=== PATIENT | male | born 1965 | race Caucasian/White ===

== ENCOUNTER 2018-06-27 20:43 | Inpatient (IN) | payer MEDICAID ==
[~2018-06-27 20:43] MED LIST: ETOMIDATE 20 MG INJ; SUCCINYLCHOLINE CHLORIDE 100 MG/5 ML SYG IV
[2018-06-27] MEDS: VANCOMYCIN 1 GM (PMX) 250 ML IVPB (21:00)
[2018-06-27 21:22] LABS: ADD MAN DIFF? NO
[2018-06-27 21:27] LABS: ABNORMAL IP MESSAGE 1; BASOPHILS % 0.1 % (0.0-2.0); HEMATOCRIT 26.7 % (42.0-52.0); HEMOGLOBIN 8.9 g/dl (14.0-18.0); LYMPHOCYTES # 0.6 10^3/ul (0.8-2.9); LYMPHOCYTES % 8.1 % (15.0-51.0); MEAN CORPUSCULAR HEMOGLOBIN 33.6 pg (29.0-33.0); MEAN CORPUSCULAR HGB CONC 33.3 g/dl (32.0-37.0); MEAN CORPUSCULAR VOLUME 100.8 fl (82.0-101.0); MEAN PLATELET VOLUME 11.9 fl (7.4-10.4); MONOCYTE # 0.3 10^3/ul (0.3-0.9); MONOCYTES % 4.9 % (0.0-11.0); NUCLEATED RED BLOOD CELLS% 0.3 /100WBC (0.0-0.0); PLATELET COUNT 55 10^3/UL (140-415); POSITIVE DIFF @See below; RED BLOOD COUNT 2.65 10^6/ul (4.70-6.10); RED CELL DISTRIBUTION WIDTH 22.6 % (11.5-14.5)
[2018-06-27] MEDS: ACETAMINOPHEN 650 MG SUPP PR (21:43)
[2018-06-27] MEDS: SODIUM CHLORIDE 0.9% 1L BAG IV* (21:43)
[2018-06-27 21:50] LABS: INR 3.85; PARTIAL THROMBOPLASTIN TIME 41.2 Sec (23.0-35.0); PROTIME 37.8 Sec (11.9-14.9)
[2018-06-27 22:05] LABS: ALANINE AMINOTRANSFERASE 320 IU/L (13-69); ALBUMIN 3.2 g/dl (3.3-4.9); ALBUMIN/GLOBULIN RATIO 0.61; ALKALINE PHOSPHATASE 155 IU/L (42-121); ANION GAP 15 (5-13); BILIRUBIN,INDIRECT 3.1 mg/dl (0-1.1); BILIRUBIN,TOTAL 5.1 mg/dl (0.2-1.3); BLOOD UREA NITROGEN 33 mg/dl (7-20); CALCIUM 8.5 mg/dl (8.4-10.2); CARBON DIOXIDE 24 mmol/L (21-31); CHLORIDE 104 mmol/L (97-110); CREATININE 1.27 mg/dl (0.61-1.24); Estimated GFR > 60 mL/min (>60); GLUCOSE 90 mg/dl (70-220); POTASSIUM 4.9 mmol/L (3.5-5.1); SODIUM 143 mmol/L (135-144); TOTAL PROTEIN 8.4 g/dl (6.1-8.1)
[2018-06-27 22:07] LABS: ETHANOL < 10.0 mg/dl (0-0)
[2018-06-27] MEDS: ACYCLOVIR 1,000 MG in DEXTROSE 5% 100 ML IVPB (22:30)
[2018-06-27 22:35] LABS: AMMONIA 123 umol/l (9-30)
[2018-06-27 22:50] LABS: ASPARTATE AMINO TRANSFERASE 1974 IU/L (15-46)
[2018-06-27] MEDS: SUCCINYLCHOLINE CHLORIDE 100 MG/5 ML SYG IV (22:57)
[2018-06-27] MEDS: ETOMIDATE 20 MG INJ IV (22:57)
[2018-06-27] MEDS ORDERED: PROPOFOL 100 ML (23:00)
[2018-06-27] MEDS ORDERED: NORepinephrine 8MG/250 ML (PMX 250 ML IV (23:00)
[2018-06-27] MEDS ORDERED: ALBUTEROL HFA 8 GM INHALER INH (23:00)
[2018-06-27] MEDS ORDERED: ACETAMINOPHEN 650 MG SUPP PR (23:00)
[2018-06-27] MEDS: ENOXAPARIN 100 MG/ML SYG SC (23:00)
[2018-06-27] MEDS: MIDAZOLAM 1 MG/ML 2 ML INJ IV (23:00)
[2018-06-27] MEDS ORDERED: PROPOFOL 0 ML (23:00)
[2018-06-27] MEDS ORDERED: ONDANSETRON 4 MG INJ IV (23:00)
[2018-06-27] MEDS ORDERED: IPRATROPIUM (HFA) 12.9 GM INHALER INH (23:00)
[2018-06-27] MEDS: PROPOFOL 100 ML IV (23:05)
[2018-06-27] MEDS ORDERED: FENTAnyl 50 MCG/ML VIAL (23:18)
[2018-06-27] MEDS: FENTAnyl 50 MCG/ML VIAL IV (23:39)
[2018-06-28] MEDS: METOPROLOL 5 MG INJ IV
[2018-06-28 00:08] LABS: Allen Test ACCEPTAB; Blood Gas Amplitude 30; MODE VENT - AC
[2018-06-28] MEDS: CEFEPIME 2GM/50 ML (PMX) 50 ML IVPB (00:11)
[2018-06-28] MEDS: LEVETIRACETAM 1000 MG (PMX) 100 ML IVPB ×2 (00:13→10:37)
[2018-06-28] MEDS: SOD CHLORIDE 0.9% 1,000 ML IV (00:30)
[2018-06-28 00:53] LABS: AMPHETAMINE/METHAMPHETAMINE Negative (NEGATIVE); BARBITURATES Negative (NEGATIVE); BENZODIAZEPINES Negative (NEGATIVE); CANNABINOIDS Negative (NEGATIVE); COCAINE Negative (NEGATIVE); OPIATES Negative (NEGATIVE)
[2018-06-28 01:20] LABS: ADD UMIC YES; UR ASCORBIC ACID NEGATIVE (NEGATIVE); UR BACTERIA FEW /HPF (NONE SEEN); UR BILIRUBIN (Dip) 1+ mg/dL (NEGATIVE); UR BLOOD (Dip) 3+ mg/dL (NEGATIVE); UR CLARITY SLIGHTLY CLOUDY (CLEAR); UR COLOR AMBER (YELLOW); UR GLUCOSE (Dip) NEGATIVE (NEGATIVE); UR KETONES (Dip) 1+ mg/dL (NEGATIVE); UR LEUKOCYTE ESTERASE (Dip) TRACE Leu/ul (NEGATIVE); UR MUCUS FEW /HPF (NONE SEEN); UR NITRITE (Dip) NEGATIVE (NEGATIVE); UR NONSQUAMOUS EPITHELIAL CELL 2 /HPF (NONE SEEN); UR RBC 143 /HPF (0-5); UR SPECIFIC GRAVITY (Dip) 1.025 (1.003-1.030); UR SQUAMOUS EPITHELIAL CELL FEW /HPF (FEW); UR TOTAL PROTEIN (Dip) 2+ mg/dl (NEGATIVE); UR UROBILINOGEN (Dip) 2+ mg/dL (NEGATIVE); UR WBC 36 /HPF (0-5)
[2018-06-28] MEDS: FENTAnyl (DRIP) 1000 mcg/100mL 100 ML IV ×3 (01:30→23:33)
[2018-06-28] MEDS: AMIODARONE 150MG/D5W BOLUS 100 ML IV (02:09)
[2018-06-28] MEDS: AMIODARONE 900 MG in DEXTROSE 5% 482 ML IV (02:30)
[2018-06-28] MEDS: DILTIAZEM 25 MG INJ IV ×2 (02:39→03:00)
[2018-06-28] MEDS: DEXTROSE 5%-0.45% NACL 1,000 ML IV ×4 (02:44→22:39)
[2018-06-28] MEDS: MIDAZOLAM (DRIP) 50 mg/50 mL 50 ML IV ×3 (02:50→23:34)
[2018-06-28 03:19] LABS: ADD MAN DIFF? NO
[2018-06-28 03:21] LABS: WHITE BLOOD COUNT 7.4 10^3/ul (4.8-10.8)
[2018-06-28 03:21] LABS: ABNORMAL IP MESSAGE 1; BASOPHILS % 0.1 % (0.0-2.0); HEMATOCRIT 27.4 % (42.0-52.0); HEMOGLOBIN 9.1 g/dl (14.0-18.0); LYMPHOCYTES # 0.5 10^3/ul (0.8-2.9); LYMPHOCYTES % 6.9 % (15.0-51.0); MEAN CORPUSCULAR HEMOGLOBIN 33.6 pg (29.0-33.0); MEAN CORPUSCULAR HGB CONC 33.2 g/dl (32.0-37.0); MEAN CORPUSCULAR VOLUME 101.1 fl (82.0-101.0); MEAN PLATELET VOLUME 11.7 fl (7.4-10.4); MONOCYTE # 0.5 10^3/ul (0.3-0.9); MONOCYTES % 6.5 % (0.0-11.0); NEUTROPHIL # 6.3 10^3/ul (1.6-7.5); NEUTROPHILS % 85.1 % (39.0-77.0); NUCLEATED RED BLOOD CELLS% 0.4 /100WBC (0.0-0.0); PLATELET COUNT 49 10^3/UL (140-415); POSITIVE DIFF @See below; RED BLOOD COUNT 2.71 10^6/ul (4.70-6.10); RED CELL DISTRIBUTION WIDTH 22.8 % (11.5-14.5)
[2018-06-28 03:24] LABS: AADO2 Arterial 24.9 mmHg (7.0-24.0); Allen Test ACCEPTAB; Arterial Base Excess -1.1 mmol/L (-3.0-3); Arterial Blood Gas Oxygen Sat 99.5 mmHG (95.0-98.0); Arterial COHb 0.3 % (0.0-3.0); Arterial Fraction of Oxyhgb 98.9 % (93.0-99.0); Arterial HCO3 21.8 mmol/L (22.0-26.0); Arterial MetHb 0.3 % (0.0-1.5); Arterial pCO2 30.3 mmhg (35-45); MODE VENT - AC; Site Right Radial
[2018-06-28 03:41] LABS: ALANINE AMINOTRANSFERASE 318 IU/L (13-69); ALBUMIN/GLOBULIN RATIO 0.57; ALKALINE PHOSPHATASE 158 IU/L (42-121); ANION GAP 14 (5-13); BILIRUBIN,INDIRECT 2.8 mg/dl (0-1.1); BILIRUBIN,TOTAL 5.1 mg/dl (0.2-1.3); BLOOD UREA NITROGEN 35 mg/dl (7-20); CARBON DIOXIDE 22 mmol/L (21-31); CHLORIDE 108 mmol/L (97-110); CREATININE 1.42 mg/dl (0.61-1.24); Estimated GFR 53 mL/min (>60); GLUCOSE 138 mg/dl (70-220); MAGNESIUM 1.7 mg/dl (1.7-2.5); PHOSPHORUS 2.3 mg/dl (2.5-4.9); POTASSIUM 4.6 mmol/L (3.5-5.1); SODIUM 144 mmol/L (135-144); TOTAL PROTEIN 8.2 g/dl (6.1-8.1)
[2018-06-28 03:58] LABS: CREATINE KINASE 2105 IU/L (23-200)
[2018-06-28 03:59] LABS: CK INDEX 0.8
[2018-06-28 04:00] LABS: LACTIC ACID 5.2 mmol/L (0.5-2.0)
[2018-06-28 04:18] LABS: ASPARTATE AMINO TRANSFERASE 1905 IU/L (15-46)
[2018-06-28] MEDS: LIDOCAINE 1% (MPF) 5 ML VIAL SC (05:00)
[2018-06-28] MEDS ORDERED: LACTULOSE 30ML CUP PO (08:30)
[2018-06-28 08:49] LABS: AADO2 Arterial 149.1 mmHg (7.0-24.0); Arterial Base Excess 1.4 mmol/L (-3.0-3); Arterial COHb 0.7 % (0.0-3.0); Arterial Fraction of Oxyhgb 89.2 % (93.0-99.0); Arterial HCO3 25.1 mmol/L (22.0-26.0); Arterial MetHb 0.2 % (0.0-1.5); Arterial pCO2 36.1 mmhg (35-45); Site Right Radial
[2018-06-28] MEDS ORDERED: FAMOTIDINE 20 MG INJ IV (09:00)
[2018-06-28] MEDS: CEFEPIME 1GM/50 ML (PMX) 50 ML IVPB ×2 (09:16→20:41)
[2018-06-28] MEDS: PANTOPRAZOLE 40 MG INJ IV ×2 (09:29→18:27)
[2018-06-28 09:37] LABS: CREATINE KINASE 1170 IU/L (23-200)
[2018-06-28 09:51] LABS: CK INDEX 0.9
[2018-06-28 11:28] LABS: PLATELET COUNT 33 10^3/UL (140-415)
[2018-06-28 11:53] LABS: LACTIC ACID 3.1 mmol/L (0.5-2.0)
[2018-06-28 11:58] LABS: INR 4.83; PROTIME 45.1 Sec (11.9-14.9); PT RATIO 3.5
[2018-06-28 11:59] LABS: PARTIAL THROMBOPLASTIN TIME 40.2 Sec (23.0-35.0)
[2018-06-28 12:01] LABS: THROMBIN TIME 26.7 SEC (13.8-19.1)
[2018-06-28 12:29] LABS: FIBRIN SPLIT PRODUCT >10 and <40 ug/ml (<10)
[2018-06-28] MEDS: LACTULOSE 30ML CUP PO ×3 (12:52→20:41)
[2018-06-28] MEDS: PHYTONADIONE (1 MG/ML PO SYG) PO (12:52)
[2018-06-28 12:58] LABS: D-DIMER > 10000.00 ng/ml (<460)
[2018-06-28] MEDS ORDERED: VANCOMYCIN IV PER PHARMACY XX (16:00)
[2018-06-28] MEDS: VANCOMYCIN HCL 2 GM in SOD CHLORIDE 0.9% 500 ML IVPB (18:27)
[2018-06-28 18:55] LABS: LACTIC ACID 2.2 mmol/L (0.5-2.0)
[2018-06-29 00:59] LABS: LACTIC ACID 1.9 mmol/L (0.5-2.0)
[2018-06-29 05:53] LABS: ABNORMAL IP MESSAGE 1; HEMATOCRIT 23.7 % (42.0-52.0); HEMOGLOBIN 7.8 g/dl (14.0-18.0); MEAN CORPUSCULAR HEMOGLOBIN 33.8 pg (29.0-33.0); MEAN CORPUSCULAR HGB CONC 32.9 g/dl (32.0-37.0); MEAN CORPUSCULAR VOLUME 102.6 fl (82.0-101.0); MEAN PLATELET VOLUME 10.9 fl (7.4-10.4); NUCLEATED RED BLOOD CELLS% 0.3 /100WBC (0.0-0.0); PLATELET COUNT 32 10^3/UL (140-415); POSITIVE DIFF @See below; RED BLOOD COUNT 2.31 10^6/ul (4.70-6.10); RED CELL DISTRIBUTION WIDTH 22.9 % (11.5-14.5)
[2018-06-29] MEDS: PANTOPRAZOLE 40 MG INJ IV ×2 (05:53→17:40)
[2018-06-29] MEDS: VANCOMYCIN 1 GM 250 ML IVPB ×2 (05:53→17:40)
[2018-06-29 05:56] LABS: ALANINE AMINOTRANSFERASE 243 IU/L (13-69); ALBUMIN 2.4 g/dl (3.3-4.9); ALKALINE PHOSPHATASE 130 IU/L (42-121); BILIRUBIN,INDIRECT 3.1 mg/dl (0-1.1); BILIRUBIN,TOTAL 4.6 mg/dl (0.2-1.3)
[2018-06-29 05:57] LABS: IRON 45 ug/dl (35-150)
[2018-06-29 05:58] LABS: MAGNESIUM 1.9 mg/dl (1.7-2.5)
[2018-06-29 05:58] LABS: PHOSPHORUS 1.5 mg/dl (2.5-4.9)
[2018-06-29 05:59] LABS: ANION GAP 8 (5-13); BLOOD UREA NITROGEN 40 mg/dl (7-20); CALCIUM 7.7 mg/dl (8.4-10.2); CARBON DIOXIDE 25 mmol/L (21-31); CHLORIDE 109 mmol/L (97-110); CREATININE 1.14 mg/dl (0.61-1.24); Estimated GFR > 60 mL/min (>60); GLUCOSE 207 mg/dl (70-220); SODIUM 142 mmol/L (135-144)
[2018-06-29 05:59] LABS: CREATINE KINASE 464 IU/L (23-200)
[2018-06-29 06:03] LABS: ASPARTATE AMINO TRANSFERASE 1181 IU/L (15-46)
[2018-06-29 06:03] LABS: LACTIC ACID 1.8 mmol/L (0.5-2.0)
[2018-06-29 06:04] LABS: AMMONIA 48 umol/l (9-30)
[2018-06-29 06:06] LABS: % IRON SATURATION 21 % SAT (22-52); TOTAL IRON BINDING CAPACITY 219 ug/dl (241-421)
[2018-06-29 06:08] LABS: POTASSIUM 3.4 mmol/L (3.5-5.1)
[2018-06-29 06:24] LABS: ADD MAN DIFF? YES
[2018-06-29 06:41] LABS: HEPATITIS B SURFACE ANTIGEN NEGATIVE (NEGATIVE)
[2018-06-29 06:43] LABS: FERRITIN 60.9 ng/ml (11.1-264.0)
[2018-06-29 06:47] LABS: HEPATITIS B SURFACE ANTIBODY NEGATIVE (NEGATIVE)
[2018-06-29 06:48] LABS: HEPATITIS B CORE ANTIBODY NEGATIVE (NEGATIVE)
[2018-06-29 06:58] LABS: HEPATITIS C VIRAL ANTIBODY NEGATIVE (NEGATIVE)
[2018-06-29 08:13] LABS: ANISOCYTOSIS 2+ (0-0); BAND NEUTROPHILS #M 0.1 10^3/ul (0.0-0.6); BAND NEUTROPHILS % (M) 3 % (0-4); GIANT THROMBO% (M) 1 % (0-0); HYPOCHROMASIA 1+ (0-0); LYMPHOCYTES #M 0.6 10^3/ul (0.8-2.9); LYMPHOCYTES % (M) 11 % (15-51); MONOCYTE #M 0.1 10^3/ul (0.3-0.9); MONOCYTES % (M) 3 % (0-11); OVALOCYTES 2+ (0-0); PLATELET ESTIMATE SIG DECREASED; POLYCHROMASIA 3+ (0-0); SEGMENTED NEUTROPHILS (M) % 83 % (39-77); SMUDGE%M 10 % (0-0); TARGET CELLS 2+ (0-0)
[2018-06-29] MEDS: LACTULOSE 30ML CUP PO ×4 (08:34→20:43)
[2018-06-29] MEDS: CEFEPIME 1GM/50 ML (PMX) 50 ML IVPB ×2 (08:34→20:43)
[2018-06-29] MEDS: PHYTONADIONE 10 MG/ML INJ SC (08:34)
[2018-06-29] MEDS: INFLUENZA VIRUS VACCINE 0.5 ML (DISPENSING) IM* (08:34)
[2018-06-29] MEDS: METOPROLOL 5 MG INJ IV ×3 (08:36→17:40)
[2018-06-29] MEDS: DEXTROSE 5%-0.45% NACL 1,000 ML IV (08:51)
[2018-06-29] MEDS: SOD CHLORIDE 0.9% 250 ML IV* (09:34)
[2018-06-29 10:52] LABS: LACTIC ACID 1.3 mmol/L (0.5-2.0)
[2018-06-29] MEDS: POTASSIUM PHOSPHATE 60 MEQ in SOD CHLORIDE 0.9% 500 ML IVPB (11:14)
[2018-06-29 13:09] LABS: TYPE AND SCREEN 1 1
[2018-06-29 18:48] LABS: LACTIC ACID 1.5 mmol/L (0.5-2.0)
[2018-06-29 18:52] LABS: INR 3.46; PROTIME 34.8 Sec (11.9-14.9); PT RATIO 2.7
[2018-06-30] MEDS: METOPROLOL 5 MG INJ IV ×4 (00:28→17:50)
[2018-06-30] MEDS: DEXTROSE 5%-0.45% NACL 1,000 ML IV ×3 (01:57→21:03)
[2018-06-30] MEDS: VANCOMYCIN 1 GM 250 ML IVPB ×2 (05:26→06:09)
[2018-06-30] MEDS: PANTOPRAZOLE 40 MG INJ IV ×2 (05:26→17:49)
[2018-06-30 05:28] LABS: ABNORMAL IP MESSAGE 1; HEMATOCRIT 24.1 % (42.0-52.0); HEMOGLOBIN 7.9 g/dl (14.0-18.0); MEAN CORPUSCULAR HEMOGLOBIN 33.8 pg (29.0-33.0); MEAN CORPUSCULAR HGB CONC 32.8 g/dl (32.0-37.0); POSITIVE DIFF @See below; RED BLOOD COUNT 2.34 10^6/ul (4.70-6.10); RED CELL DISTRIBUTION WIDTH 22.8 % (11.5-14.5)
[2018-06-30 05:28] LABS: WHITE BLOOD COUNT 7.2 10^3/ul (4.8-10.8)
[2018-06-30 05:42] LABS: INR 3.45; PROTIME 34.7 Sec (11.9-14.9); PT RATIO 2.7
[2018-06-30 05:43] LABS: PARTIAL THROMBOPLASTIN TIME 41.6 Sec (23.0-35.0)
[2018-06-30 05:45] LABS: AMMONIA 42 umol/l (9-30)
[2018-06-30 05:49] LABS: ADD MAN DIFF? YES; ANION GAP 6 (5-13); BLOOD UREA NITROGEN 18 mg/dl (7-20); CALCIUM 6.8 mg/dl (8.4-10.2); CARBON DIOXIDE 26 mmol/L (21-31); CHLORIDE 109 mmol/L (97-110); Estimated GFR > 60 mL/min (>60); MEAN PLATELET VOLUME 13.1 fl (7.4-10.4); PLATELET COUNT 30 10^3/UL (140-415); POTASSIUM 3.3 mmol/L (3.5-5.1); SODIUM 141 mmol/L (135-144)
[2018-06-30 05:59] LABS: VANCOMYCIN,TROUGH 9.5 ug/ml (10.0-20.0)
[2018-06-30 06:03] LABS: GLUCOSE 473 mg/dl (70-220)
[2018-06-30 06:25] LABS: CREATINE KINASE 193 IU/L (23-200); PHOSPHORUS 1.8 mg/dl (2.5-4.9)
[2018-06-30 06:25] LABS: MAGNESIUM 1.7 mg/dl (1.7-2.5)
[2018-06-30] MEDS ORDERED: GLUCOSE GEL 15 GRAM TUBE PO ×2 (06:30)
[2018-06-30] MEDS ORDERED: GLUCOSE GEL 15 GRAM TUBE BUCCAL (06:30)
[2018-06-30] MEDS ORDERED: DEXTROSE 50% 50 ML SYRINGE IV ×2 (06:30)
[2018-06-30] MEDS ORDERED: GLUCAGON 1 MG INJ IM (06:30)
[2018-06-30] MEDS: POTASSIUM CHLORIDE 50 ML IVPB ×3 (06:53→08:54)
[2018-06-30] MEDS: CALCIUM GLUCONATE 10% 1 GM in DEXTROSE 5% 100 ML IVPB (08:53)
[2018-06-30] MEDS: ACETAMINOPHEN 650MG/20.3ML CUP PO (08:54)
[2018-06-30] MEDS: LACTULOSE 30ML CUP PO ×4 (08:54→21:02)
[2018-06-30] MEDS: CEFEPIME 1GM/50 ML (PMX) 50 ML IVPB ×2 (08:54→21:03)
[2018-06-30] MEDS: INSULIN ASPART [NOVOLOG] 3 ML PEN SC ×4 (08:59→21:11)
[2018-06-30 09:01] LABS: ANISOCYTOSIS 2+ (0-0); BAND NEUTROPHILS #M 0.3 10^3/ul (0.0-0.6); BAND NEUTROPHILS % (M) 5 % (0-4); BASOPHILS % (M) 1 % (0-2); EOSINOPHILS % (M) 2 % (0-7); GIANT THROMBO% (M) 1 % (0-0); HYPOCHROMASIA 2+ (0-0); LYMPHOCYTES #M 0.7 10^3/ul (0.8-2.9); LYMPHOCYTES % (M) 10 % (15-51); MONOCYTE #M 0.2 10^3/ul (0.3-0.9); MONOCYTES % (M) 3 % (0-11); MYELOCYTES #M 0.2 10^3/ul (0.0-0.0); MYELOCYTES % (M) 3 % (0-0); PLATELET ESTIMATE SIG DECREASED; POLYCHROMASIA 2+ (0-0); SEG NEUT #M 5.5 10^3/ul (1.6-7.5); SEGMENTED NEUTROPHILS (M) % 76 % (39-77); SMUDGE%M 6 % (0-0); TARGET CELLS 1+ (0-0)
[2018-06-30] MEDS: MIDAZOLAM (DRIP) 50 mg/50 mL 50 ML IV ×2 (09:02→11:54)
[2018-06-30 10:10] LABS: MITOCHONDRIAL TB NEGATIVE (NEGATIVE); SMOOTH MUSCLE AB SCREEN NEGATIVE (NEGATIVE)
[2018-06-30 10:22] LABS: HEMOGLOBIN A1C 6.2 % (0-5.9)
[2018-06-30] MEDS: POTASSIUM PHOSPHATE 60 MEQ in SOD CHLORIDE 0.9% 500 ML IVPB (11:39)
[2018-06-30 14:51] LABS: ANA SCREEN NEGATIVE (NEGATIVE)
[2018-06-30] MEDS: VANCOMYCIN HCL 1.25 GM in SOD CHLORIDE 0.9% 250 ML IVPB (17:50)
[2018-06-30] MEDS ORDERED: VANCOMYCIN HCL 1.5 GM in SOD CHLORIDE 0.9% 250 ML IVPB (18:00)
[2018-07-01] MEDS: METOPROLOL 5 MG INJ IV ×5 (00:24→23:33)
[2018-07-01] MEDS: MIDAZOLAM (DRIP) 50 mg/50 mL 50 ML IV (00:24)
[2018-07-01] MEDS: INSULIN ASPART [NOVOLOG] 3 ML PEN SC ×6 (01:26→21:12)
[2018-07-01 05:45] LABS: ADD MAN DIFF? NO
[2018-07-01] MEDS: VANCOMYCIN HCL 1.25 GM in SOD CHLORIDE 0.9% 250 ML IVPB ×2 (05:55→18:04)
[2018-07-01] MEDS: PANTOPRAZOLE 40 MG INJ IV ×2 (05:55→18:04)
[2018-07-01 06:00] LABS: ABNORMAL IP MESSAGE 1; BASOPHILS % 0.4 % (0.0-2.0); EOSINOPHILS # 0.1 10^3/ul (0.0-0.5); EOSINOPHILS % 1.2 % (0.0-7.0); HEMATOCRIT 25.3 % (42.0-52.0); HEMOGLOBIN 8.2 g/dl (14.0-18.0); LYMPHOCYTES # 1.5 10^3/ul (0.8-2.9); LYMPHOCYTES % 14.3 % (15.0-51.0); MEAN CORPUSCULAR HEMOGLOBIN 33.3 pg (29.0-33.0); MEAN CORPUSCULAR HGB CONC 32.4 g/dl (32.0-37.0); MEAN CORPUSCULAR VOLUME 102.8 fl (82.0-101.0); MEAN PLATELET VOLUME 12.9 fl (7.4-10.4); MONOCYTES % 19.8 % (0.0-11.0); NEUTROPHIL # 6.6 10^3/ul (1.6-7.5); NEUTROPHILS % 63.5 % (39.0-77.0); PLATELET COUNT 36 10^3/UL (140-415); POSITIVE DIFF @See below; RED BLOOD COUNT 2.46 10^6/ul (4.70-6.10); RED CELL DISTRIBUTION WIDTH 23.1 % (11.5-14.5)
[2018-07-01 06:00] LABS: WHITE BLOOD COUNT 10.3 10^3/ul (4.8-10.8)
[2018-07-01] MEDS: DEXTROSE 5%-0.45% NACL 1,000 ML IV (06:04)
[2018-07-01 06:25] LABS: AMMONIA 32 umol/l (9-30)
[2018-07-01 06:36] LABS: ALANINE AMINOTRANSFERASE 163 IU/L (13-69); ALBUMIN 2.3 g/dl (3.3-4.9); ALKALINE PHOSPHATASE 157 IU/L (42-121); ASPARTATE AMINO TRANSFERASE 485 IU/L (15-46); BILIRUBIN,INDIRECT 3.4 mg/dl (0-1.1); BILIRUBIN,TOTAL 6.6 mg/dl (0.2-1.3); TOTAL PROTEIN 7.1 g/dl (6.1-8.1)
[2018-07-01 06:37] LABS: ANION GAP 8 (5-13); BLOOD UREA NITROGEN 14 mg/dl (7-20); CALCIUM 7.4 mg/dl (8.4-10.2); CARBON DIOXIDE 25 mmol/L (21-31); CHLORIDE 112 mmol/L (97-110); CREATININE 0.71 mg/dl (0.61-1.24); Estimated GFR > 60 mL/min (>60); GLUCOSE 187 mg/dl (70-220); POTASSIUM 3.7 mmol/L (3.5-5.1); SODIUM 145 mmol/L (135-144)
[2018-07-01 06:46] LABS: CREATINE KINASE 189 IU/L (23-200)
[2018-07-01 06:49] LABS: MAGNESIUM 1.7 mg/dl (1.7-2.5)
[2018-07-01 06:49] LABS: PHOSPHORUS 1.8 mg/dl (2.5-4.9)
[2018-07-01] MEDS: CEFEPIME 1GM/50 ML (PMX) 50 ML IVPB ×2 (09:17→21:11)
[2018-07-01] MEDS: LACTULOSE 30ML CUP PO ×4 (09:17→21:11)
[2018-07-01] MEDS: POTASSIUM PHOSPHATE 60 MEQ in SOD CHLORIDE 0.9% 250 ML IVPB (10:56)
[2018-07-01] MEDS: ACETAMINOPHEN 650MG/20.3ML CUP PO (14:20)
[2018-07-01 19:47] LABS: OCCULT BLOOD STOOL POSITIVE (NEGATIVE)
[2018-07-01] MEDS: PROPOFOL 100 ML IV (20:35)
[2018-07-01] MEDS: SODIUM CHLORIDE 0.45% 500 ML BAG IV* (22:26)
[2018-07-02] MEDS: ALBUMIN HUMAN 25% 100 ML IV (00:09)
[2018-07-02] MEDS: INSULIN ASPART [NOVOLOG] 3 ML PEN SC ×6 (01:06→21:30)
[2018-07-02] MEDS: ACETAMINOPHEN 650MG/20.3ML CUP PO (01:11)
[2018-07-02] MEDS: PROPOFOL 100 ML IV ×2 (03:54→14:44)
[2018-07-02 05:26] LABS: ADD MAN DIFF? NO
[2018-07-02 05:31] LABS: WHITE BLOOD COUNT 11.2 10^3/ul (4.8-10.8)
[2018-07-02 05:31] LABS: ABNORMAL IP MESSAGE 1; BASOPHILS % 0.3 % (0.0-2.0); EOSINOPHILS # 0.1 10^3/ul (0.0-0.5); EOSINOPHILS % 0.9 % (0.0-7.0); HEMATOCRIT 23.7 % (42.0-52.0); HEMOGLOBIN 7.9 g/dl (14.0-18.0); LYMPHOCYTES # 1.7 10^3/ul (0.8-2.9); LYMPHOCYTES % 15.4 % (15.0-51.0); MEAN CORPUSCULAR HEMOGLOBIN 34.2 pg (29.0-33.0); MEAN CORPUSCULAR HGB CONC 33.3 g/dl (32.0-37.0); MEAN CORPUSCULAR VOLUME 102.6 fl (82.0-101.0); MEAN PLATELET VOLUME 11.4 fl (7.4-10.4); MONOCYTE # 2.5 10^3/ul (0.3-0.9); MONOCYTES % 22.5 % (0.0-11.0); NEUTROPHIL # 6.7 10^3/ul (1.6-7.5); NEUTROPHILS % 60.2 % (39.0-77.0); PLATELET COUNT 37 10^3/UL (140-415); POSITIVE DIFF @See below; RED BLOOD COUNT 2.31 10^6/ul (4.70-6.10); RED CELL DISTRIBUTION WIDTH 23.9 % (11.5-14.5)
[2018-07-02] MEDS: PANTOPRAZOLE 40 MG INJ IV ×2 (05:50→17:31)
[2018-07-02 05:51] LABS: AMMONIA 20 umol/l (9-30)
[2018-07-02 05:55] LABS: VANCOMYCIN,TROUGH 11.5 ug/ml (10.0-20.0)
[2018-07-02 05:55] LABS: INR 3.04; PARTIAL THROMBOPLASTIN TIME 46.2 Sec (23.0-35.0); PROTIME 31.5 Sec (11.9-14.9); PT RATIO 2.5
[2018-07-02] MEDS: METOPROLOL 5 MG INJ IV ×3 (05:55→17:32)
[2018-07-02 05:59] LABS: ANION GAP 6 (5-13); BLOOD UREA NITROGEN 18 mg/dl (7-20); CALCIUM 7.4 mg/dl (8.4-10.2); CARBON DIOXIDE 25 mmol/L (21-31); CHLORIDE 110 mmol/L (97-110); CREATININE 0.82 mg/dl (0.61-1.24); Estimated GFR > 60 mL/min (>60); GLUCOSE 147 mg/dl (70-220); PHOSPHORUS 2.6 mg/dl (2.5-4.9); POTASSIUM 4.2 mmol/L (3.5-5.1); SODIUM 141 mmol/L (135-144)
[2018-07-02] MEDS: SODIUM CHLORIDE 0.45% 500 ML BAG IV* (06:53)
[2018-07-02] MEDS: VANCOMYCIN HCL 1.25 GM in SOD CHLORIDE 0.9% 250 ML IVPB (06:53)
[2018-07-02 07:03] LABS: ALANINE AMINOTRANSFERASE 124 IU/L (13-69); ALBUMIN 2.5 g/dl (3.3-4.9); ALKALINE PHOSPHATASE 169 IU/L (42-121); ASPARTATE AMINO TRANSFERASE 328 IU/L (15-46); BILIRUBIN,INDIRECT 3.2 mg/dl (0-1.1); BILIRUBIN,TOTAL 6.8 mg/dl (0.2-1.3); TOTAL PROTEIN 7.3 g/dl (6.1-8.1)
[2018-07-02] MEDS: CEFEPIME 1GM/50 ML (PMX) 50 ML IVPB ×2 (09:02→21:26)
[2018-07-02] MEDS: SOD CHLORIDE 0.9% 1,000 ML IV ×2 (09:17→22:20)
[2018-07-02] MEDS: CALCIUM GLUCONATE 10% 1 GM in DEXTROSE 5% 100 ML IVPB (11:59)
[2018-07-02] MEDS: LACTULOSE 30ML CUP PO (12:01)
[2018-07-02] MEDS: LORAZEPAM 2 MG INJ IV (16:58)
[2018-07-02] MEDS: VANCOMYCIN HCL 1.5 GM in SOD CHLORIDE 0.9% 250 ML IVPB (17:59)
[2018-07-03] MEDS: METOPROLOL 5 MG INJ IV ×4 (00:53→17:25)
[2018-07-03] MEDS: INSULIN ASPART [NOVOLOG] 3 ML PEN SC ×6 (01:00→22:25)
[2018-07-03] MEDS: LACTULOSE 30ML CUP PO ×2 (01:00→15:11)
[2018-07-03 04:57] LABS: ADD MAN DIFF? NO
[2018-07-03 05:05] LABS: ABNORMAL IP MESSAGE 1; BASOPHILS % 0.3 % (0.0-2.0); EOSINOPHILS # 0.2 10^3/ul (0.0-0.5); EOSINOPHILS % 1.7 % (0.0-7.0); HEMATOCRIT 24.9 % (42.0-52.0); HEMOGLOBIN 8.2 g/dl (14.0-18.0); LYMPHOCYTES # 1.6 10^3/ul (0.8-2.9); MEAN CORPUSCULAR HEMOGLOBIN 34.5 pg (29.0-33.0); MEAN CORPUSCULAR HGB CONC 32.9 g/dl (32.0-37.0); MEAN CORPUSCULAR VOLUME 104.6 fl (82.0-101.0); MEAN PLATELET VOLUME 11.9 fl (7.4-10.4); MONOCYTE # 1.9 10^3/ul (0.3-0.9); MONOCYTES % 22.4 % (0.0-11.0); NEUTROPHIL # 4.9 10^3/ul (1.6-7.5); NEUTROPHILS % 56.8 % (39.0-77.0); PLATELET COUNT 45 10^3/UL (140-415); POSITIVE DIFF @See below; RED BLOOD COUNT 2.38 10^6/ul (4.70-6.10); RED CELL DISTRIBUTION WIDTH 23.7 % (11.5-14.5)
[2018-07-03 05:05] LABS: WHITE BLOOD COUNT 8.7 10^3/ul (4.8-10.8)
[2018-07-03 05:29] LABS: AMMONIA 26 umol/l (9-30)
[2018-07-03 05:31] LABS: ALANINE AMINOTRANSFERASE 105 IU/L (13-69); ALBUMIN 2.4 g/dl (3.3-4.9); ALKALINE PHOSPHATASE 144 IU/L (42-121); ASPARTATE AMINO TRANSFERASE 229 IU/L (15-46); BILIRUBIN,INDIRECT 2.7 mg/dl (0-1.1); BILIRUBIN,TOTAL 6.1 mg/dl (0.2-1.3); TOTAL PROTEIN 7.1 g/dl (6.1-8.1)
[2018-07-03 05:38] LABS: ANION GAP 3 (5-13); BLOOD UREA NITROGEN 19 mg/dl (7-20); CALCIUM 7.3 mg/dl (8.4-10.2); CARBON DIOXIDE 24 mmol/L (21-31); CHLORIDE 111 mmol/L (97-110); CREATININE 0.68 mg/dl (0.61-1.24); Estimated GFR > 60 mL/min (>60); GLUCOSE 112 mg/dl (70-220); POTASSIUM 4.6 mmol/L (3.5-5.1); SODIUM 138 mmol/L (135-144)
[2018-07-03] MEDS: VANCOMYCIN HCL 1.5 GM in SOD CHLORIDE 0.9% 250 ML IVPB ×2 (06:21→18:06)
[2018-07-03] MEDS: PANTOPRAZOLE 40 MG INJ IV ×2 (06:21→18:06)
[2018-07-03] MEDS: PROPOFOL 100 ML IV ×3 (06:26→19:50)
[2018-07-03] MEDS: FUROSEMIDE 40 MG INJ IV (09:27)
[2018-07-03] MEDS: CEFEPIME 1GM/50 ML (PMX) 50 ML IVPB ×2 (09:28→21:00)
[2018-07-03] MEDS: PHYTONADIONE 10 MG/ML INJ SC (15:11)
[2018-07-04] MEDS: PROPOFOL 100 ML IV ×5 (00:46→21:15)
[2018-07-04] MEDS: LACTULOSE 30ML CUP PO ×2 (01:33→13:08)
[2018-07-04] MEDS: METOPROLOL 5 MG INJ IV ×4 (01:33→17:57)
[2018-07-04] MEDS: INSULIN ASPART [NOVOLOG] 3 ML PEN SC ×6 (01:38→21:32)
[2018-07-04 05:08] LABS: ADD MAN DIFF? NO
[2018-07-04 05:10] LABS: WHITE BLOOD COUNT 6.6 10^3/ul (4.8-10.8)
[2018-07-04 05:10] LABS: ABNORMAL IP MESSAGE 1; BASOPHILS % 0.3 % (0.0-2.0); EOSINOPHILS # 0.2 10^3/ul (0.0-0.5); EOSINOPHILS % 3.4 % (0.0-7.0); HEMATOCRIT 25.8 % (42.0-52.0); HEMOGLOBIN 8.2 g/dl (14.0-18.0); LYMPHOCYTES # 1.1 10^3/ul (0.8-2.9); LYMPHOCYTES % 17.2 % (15.0-51.0); MEAN CORPUSCULAR HGB CONC 31.8 g/dl (32.0-37.0); MEAN CORPUSCULAR VOLUME 107.1 fl (82.0-101.0); MEAN PLATELET VOLUME 12.1 fl (7.4-10.4); MONOCYTE # 1.9 10^3/ul (0.3-0.9); MONOCYTES % 28.5 % (0.0-11.0); NEUTROPHIL # 3.3 10^3/ul (1.6-7.5); NEUTROPHILS % 50.1 % (39.0-77.0); PLATELET COUNT 48 10^3/UL (140-415); POSITIVE DIFF @See below; RED BLOOD COUNT 2.41 10^6/ul (4.70-6.10); RED CELL DISTRIBUTION WIDTH 23.5 % (11.5-14.5)
[2018-07-04] MEDS: PANTOPRAZOLE 40 MG INJ IV ×2 (05:20→17:57)
[2018-07-04] MEDS: VANCOMYCIN HCL 1.5 GM in SOD CHLORIDE 0.9% 250 ML IVPB (05:20)
[2018-07-04 05:33] LABS: ANION GAP 0 (5-13); BLOOD UREA NITROGEN 25 mg/dl (7-20); CALCIUM 7.8 mg/dl (8.4-10.2); CARBON DIOXIDE 27 mmol/L (21-31); CHLORIDE 115 mmol/L (97-110); CREATININE 0.89 mg/dl (0.61-1.24); Estimated GFR > 60 mL/min (>60); GLUCOSE 136 mg/dl (70-220); SODIUM 142 mmol/L (135-144)
[2018-07-04 05:34] LABS: VANCOMYCIN,TROUGH 18.1 ug/ml (10.0-20.0)
[2018-07-04] MEDS: CEFEPIME 1GM/50 ML (PMX) 50 ML IVPB ×2 (08:18→21:16)
[2018-07-04] MEDS: PHYTONADIONE 10 MG/ML INJ SC (08:18)
[2018-07-04 09:59] LABS: INR 2.41; PROTIME 26.3 Sec (11.9-14.9); PT RATIO 2.1
[2018-07-04 10:00] LABS: PARTIAL THROMBOPLASTIN TIME 42.2 Sec (23.0-35.0)
[2018-07-04 10:07] LABS: TROPONIN-I 0.014 ng/ml (0.000-0.120)
[2018-07-04 11:33] LABS: AADO2 Arterial 143.1 mmHg (7.0-24.0); Allen Test ACCEPTAB; Arterial Base Excess 1.6 mmol/L (-3.0-3); Arterial Blood Gas Oxygen Sat 91.4 mmHG (95.0-98.0); Arterial COHb 0.4 % (0.0-3.0); Arterial Fraction of Oxyhgb 90.9 % (93.0-99.0); Arterial HCO3 25.3 mmol/L (22.0-26.0); Arterial MetHb 0.2 % (0.0-1.5); Arterial pCO2 36.7 mmhg (35-45); Blood Gas PS 10; MODE VENT - CPAP; Site Right Radial
[2018-07-04] MEDS: VANCOMYCIN HCL 1.25 GM in SOD CHLORIDE 0.9% 250 ML IVPB (17:57)
[2018-07-04] MEDS: ACETAMINOPHEN 650MG/20.3ML CUP PO (18:13)
[2018-07-04] MEDS: RIFAXIMIN 550 MG TAB PO (21:16)
[2018-07-05] MEDS: LACTULOSE 30ML CUP PO ×2 (00:47→22:00)
[2018-07-05] MEDS: PROPOFOL 100 ML IV ×2 (00:47→04:16)
[2018-07-05] MEDS: METOPROLOL 5 MG INJ IV ×4 (00:48→17:21)
[2018-07-05] MEDS: INSULIN ASPART [NOVOLOG] 3 ML PEN SC ×6 (00:48→20:41)
[2018-07-05] MEDS: PANTOPRAZOLE 40 MG INJ IV ×2 (05:07→17:21)
[2018-07-05] MEDS: VANCOMYCIN HCL 1.25 GM in SOD CHLORIDE 0.9% 250 ML IVPB ×2 (05:07→17:22)
[2018-07-05 05:17] LABS: ADD MAN DIFF? NO
[2018-07-05 05:21] LABS: WHITE BLOOD COUNT 7.4 10^3/ul (4.8-10.8)
[2018-07-05 05:21] LABS: ABNORMAL IP MESSAGE 1; BASOPHIL # 0.1 10^3/ul (0.0-0.1); BASOPHILS % 0.7 % (0.0-2.0); EOSINOPHILS # 0.2 10^3/ul (0.0-0.5); EOSINOPHILS % 2.7 % (0.0-7.0); HEMATOCRIT 25.1 % (42.0-52.0); HEMOGLOBIN 7.9 g/dl (14.0-18.0); LYMPHOCYTES # 1.7 10^3/ul (0.8-2.9); LYMPHOCYTES % 23.5 % (15.0-51.0); MEAN CORPUSCULAR HEMOGLOBIN 33.8 pg (29.0-33.0); MEAN CORPUSCULAR HGB CONC 31.5 g/dl (32.0-37.0); MEAN CORPUSCULAR VOLUME 107.3 fl (82.0-101.0); MEAN PLATELET VOLUME 12.4 fl (7.4-10.4); MONOCYTE # 1.8 10^3/ul (0.3-0.9); MONOCYTES % 24.7 % (0.0-11.0); NEUTROPHIL # 3.5 10^3/ul (1.6-7.5); NEUTROPHILS % 47.9 % (39.0-77.0); PLATELET COUNT 57 10^3/UL (140-415); POSITIVE DIFF @See below; RED BLOOD COUNT 2.34 10^6/ul (4.70-6.10); RED CELL DISTRIBUTION WIDTH 23.2 % (11.5-14.5)
[2018-07-05 05:43] LABS: ALANINE AMINOTRANSFERASE 86 IU/L (13-69); ALBUMIN 2.3 g/dl (3.3-4.9); ALKALINE PHOSPHATASE 134 IU/L (42-121); ASPARTATE AMINO TRANSFERASE 163 IU/L (15-46); BILIRUBIN,INDIRECT 1.8 mg/dl (0-1.1); BILIRUBIN,TOTAL 3.6 mg/dl (0.2-1.3)
[2018-07-05 05:45] LABS: ANION GAP 3 (5-13); BLOOD UREA NITROGEN 27 mg/dl (7-20); CALCIUM 7.9 mg/dl (8.4-10.2); CARBON DIOXIDE 26 mmol/L (21-31); CHLORIDE 113 mmol/L (97-110); CREATININE 1.06 mg/dl (0.61-1.24); Estimated GFR > 60 mL/min (>60); GLUCOSE 126 mg/dl (70-220); POTASSIUM 4.1 mmol/L (3.5-5.1); SODIUM 142 mmol/L (135-144)
[2018-07-05] MEDS: CEFEPIME 1GM/50 ML (PMX) 50 ML IVPB ×2 (08:36→20:40)
[2018-07-05] MEDS: RIFAXIMIN 550 MG TAB PO ×2 (08:36→20:41)
[2018-07-05] MEDS: FUROSEMIDE 40 MG INJ IV (10:03)
[2018-07-05] MEDS ORDERED: LACTULOSE 30ML CUP (17:18)
[2018-07-05] MEDS: LORAZEPAM 1 MG TAB GTB (17:22)
[2018-07-06] MEDS: METOPROLOL 5 MG INJ IV ×4 (00:41→17:27)
[2018-07-06] MEDS: INSULIN ASPART [NOVOLOG] 3 ML PEN SC ×6 (00:47→21:00)
[2018-07-06 05:11] LABS: ADD MAN DIFF? NO
[2018-07-06] MEDS: PANTOPRAZOLE 40 MG INJ IV ×2 (05:30→17:23)
[2018-07-06 05:31] LABS: ABNORMAL IP MESSAGE 1; BASOPHIL # 0.1 10^3/ul (0.0-0.1); BASOPHILS % 0.6 % (0.0-2.0); EOSINOPHILS # 0.1 10^3/ul (0.0-0.5); EOSINOPHILS % 1.2 % (0.0-7.0); HEMATOCRIT 25.6 % (42.0-52.0); HEMOGLOBIN 8.5 g/dl (14.0-18.0); LYMPHOCYTES # 1.5 10^3/ul (0.8-2.9); LYMPHOCYTES % 16.3 % (15.0-51.0); MEAN CORPUSCULAR HGB CONC 33.2 g/dl (32.0-37.0); MEAN CORPUSCULAR VOLUME 105.3 fl (82.0-101.0); MEAN PLATELET VOLUME 11.8 fl (7.4-10.4); MONOCYTE # 1.6 10^3/ul (0.3-0.9); MONOCYTES % 17.9 % (0.0-11.0); NEUTROPHIL # 5.7 10^3/ul (1.6-7.5); NEUTROPHILS % 63.2 % (39.0-77.0); PLATELET COUNT 68 10^3/UL (140-415); POSITIVE DIFF @See below; RED BLOOD COUNT 2.43 10^6/ul (4.70-6.10); RED CELL DISTRIBUTION WIDTH 22.3 % (11.5-14.5)
[2018-07-06] MEDS: LACTULOSE 30ML CUP PO ×3 (06:00→21:21)
[2018-07-06 06:05] LABS: ANION GAP 8 (5-13); BLOOD UREA NITROGEN 26 mg/dl (7-20); CALCIUM 8.1 mg/dl (8.4-10.2); CARBON DIOXIDE 25 mmol/L (21-31); CHLORIDE 112 mmol/L (97-110); CREATININE 0.96 mg/dl (0.61-1.24); Estimated GFR > 60 mL/min (>60); GLUCOSE 127 mg/dl (70-220); SODIUM 145 mmol/L (135-144)
[2018-07-06] MEDS: VANCOMYCIN HCL 1.25 GM in SOD CHLORIDE 0.9% 250 ML IVPB (06:36)
[2018-07-06] MEDS: FUROSEMIDE 40 MG INJ IV (08:42)
[2018-07-06] MEDS: RIFAXIMIN 550 MG TAB PO ×2 (08:46→21:00)
[2018-07-06] MEDS: CEFEPIME 1GM/50 ML (PMX) 50 ML IVPB (09:52)
[2018-07-06] MEDS: CIPROFLOXACIN 400MG/D5W 200 ML IVPB (21:10)
[2018-07-07] MEDS: INSULIN ASPART [NOVOLOG] 3 ML PEN SC ×6 (01:00→20:59)
[2018-07-07] MEDS: LACTULOSE 30ML CUP PO ×3 (02:04→21:41)
[2018-07-07 05:50] LABS: ADD MAN DIFF? NO
[2018-07-07] MEDS: PANTOPRAZOLE 40 MG INJ IV ×2 (05:51→17:59)
[2018-07-07 05:58] LABS: WHITE BLOOD COUNT 8.1 10^3/ul (4.8-10.8)
[2018-07-07 05:58] LABS: ABNORMAL IP MESSAGE 1; BASOPHILS % 0.5 % (0.0-2.0); EOSINOPHILS # 0.2 10^3/ul (0.0-0.5); LYMPHOCYTES # 1.5 10^3/ul (0.8-2.9); LYMPHOCYTES % 18.1 % (15.0-51.0); MEAN CORPUSCULAR HEMOGLOBIN 34.1 pg (29.0-33.0); MEAN CORPUSCULAR HGB CONC 32.1 g/dl (32.0-37.0); MEAN CORPUSCULAR VOLUME 106.1 fl (82.0-101.0); MEAN PLATELET VOLUME 10.9 fl (7.4-10.4); MONOCYTE # 1.2 10^3/ul (0.3-0.9); MONOCYTES % 14.7 % (0.0-11.0); NEUTROPHIL # 5.2 10^3/ul (1.6-7.5); NEUTROPHILS % 64.2 % (39.0-77.0); PLATELET COUNT 70 10^3/UL (140-415); POSITIVE DIFF @See below; RED BLOOD COUNT 2.64 10^6/ul (4.70-6.10); RED CELL DISTRIBUTION WIDTH 22.4 % (11.5-14.5)
[2018-07-07 06:15] LABS: INR 1.97; PROTIME 22.5 Sec (11.9-14.9); PT RATIO 1.8
[2018-07-07 06:24] LABS: ALANINE AMINOTRANSFERASE 74 IU/L (13-69); ALBUMIN 2.4 g/dl (3.3-4.9); ALKALINE PHOSPHATASE 127 IU/L (42-121); ASPARTATE AMINO TRANSFERASE 163 IU/L (15-46); BILIRUBIN,INDIRECT 3.1 mg/dl (0-1.1); TOTAL PROTEIN 7.5 g/dl (6.1-8.1)
[2018-07-07 07:27] LABS: ANION GAP 4 (5-13); BLOOD UREA NITROGEN 27 mg/dl (7-20); CALCIUM 8.5 mg/dl (8.4-10.2); CARBON DIOXIDE 30 mmol/L (21-31); CHLORIDE 112 mmol/L (97-110); Estimated GFR > 60 mL/min (>60); GLUCOSE 126 mg/dl (70-220); MAGNESIUM 1.9 mg/dl (1.7-2.5); PHOSPHORUS 3.4 mg/dl (2.5-4.9); POTASSIUM 3.8 mmol/L (3.5-5.1); SODIUM 146 mmol/L (135-144)
[2018-07-07] MEDS: RIFAXIMIN 550 MG TAB PO ×3 (09:00→20:46)
[2018-07-07] MEDS: FUROSEMIDE 40 MG INJ IV (09:41)
[2018-07-07] MEDS: CIPROFLOXACIN 400MG/D5W 200 ML IVPB ×2 (09:41→20:46)
[2018-07-07 18:46] LABS: ALANINE AMINOTRANSFERASE 83 IU/L (13-69); ALBUMIN 2.4 g/dl (3.3-4.9); ALBUMIN/GLOBULIN RATIO 0.47; ALKALINE PHOSPHATASE 123 IU/L (42-121); ANION GAP 4 (5-13); ASPARTATE AMINO TRANSFERASE 162 IU/L (15-46); BILIRUBIN,INDIRECT 2.9 mg/dl (0-1.1); BILIRUBIN,TOTAL 4.4 mg/dl (0.2-1.3); BLOOD UREA NITROGEN 28 mg/dl (7-20); CALCIUM 8.3 mg/dl (8.4-10.2); CARBON DIOXIDE 30 mmol/L (21-31); CHLORIDE 110 mmol/L (97-110); CREATININE 0.92 mg/dl (0.61-1.24); Estimated GFR > 60 mL/min (>60); GLUCOSE 139 mg/dl (70-220); POTASSIUM 3.5 mmol/L (3.5-5.1); SODIUM 144 mmol/L (135-144); TOTAL PROTEIN 7.5 g/dl (6.1-8.1)
[2018-07-08] MEDS: INSULIN ASPART [NOVOLOG] 3 ML PEN SC ×6 (00:56→20:26)
[2018-07-08] MEDS: PANTOPRAZOLE 40 MG INJ IV ×2 (05:38→17:35)
[2018-07-08] MEDS: LACTULOSE 30ML CUP PO ×2 (05:38→13:24)
[2018-07-08] MEDS: CIPROFLOXACIN 400MG/D5W 200 ML IVPB ×2 (08:19→20:27)
[2018-07-08] MEDS: FUROSEMIDE 40 MG INJ IV (08:19)
[2018-07-08] MEDS: RIFAXIMIN 550 MG TAB PO (08:19)
[2018-07-08 11:00] LABS: ADD MAN DIFF? NO
[2018-07-08 11:09] LABS: WHITE BLOOD COUNT 8.3 10^3/ul (4.8-10.8)
[2018-07-08 11:09] LABS: ABNORMAL IP MESSAGE 1; BASOPHIL # 0.1 10^3/ul (0.0-0.1); BASOPHILS % 0.6 % (0.0-2.0); EOSINOPHILS # 0.2 10^3/ul (0.0-0.5); EOSINOPHILS % 2.5 % (0.0-7.0); HEMATOCRIT 27.1 % (42.0-52.0); HEMOGLOBIN 8.5 g/dl (14.0-18.0); LYMPHOCYTES # 1.4 10^3/ul (0.8-2.9); LYMPHOCYTES % 17.3 % (15.0-51.0); MEAN CORPUSCULAR HEMOGLOBIN 34.3 pg (29.0-33.0); MEAN CORPUSCULAR HGB CONC 31.4 g/dl (32.0-37.0); MEAN CORPUSCULAR VOLUME 109.3 fl (82.0-101.0); MONOCYTE # 1.2 10^3/ul (0.3-0.9); MONOCYTES % 14.1 % (0.0-11.0); NEUTROPHIL # 5.4 10^3/ul (1.6-7.5); NEUTROPHILS % 64.9 % (39.0-77.0); PLATELET COUNT 71 10^3/UL (140-415); POSITIVE DIFF @See below; RED BLOOD COUNT 2.48 10^6/ul (4.70-6.10); RED CELL DISTRIBUTION WIDTH 21.2 % (11.5-14.5)
[2018-07-08 11:25] LABS: ALANINE AMINOTRANSFERASE 80 IU/L (13-69); ALBUMIN 2.4 g/dl (3.3-4.9); ALBUMIN/GLOBULIN RATIO 0.48; ALKALINE PHOSPHATASE 117 IU/L (42-121); ANION GAP 6 (5-13); ASPARTATE AMINO TRANSFERASE 172 IU/L (15-46); BILIRUBIN,INDIRECT 3.2 mg/dl (0-1.1); BILIRUBIN,TOTAL 4.7 mg/dl (0.2-1.3); BLOOD UREA NITROGEN 25 mg/dl (7-20); CALCIUM 8.3 mg/dl (8.4-10.2); CARBON DIOXIDE 28 mmol/L (21-31); CHLORIDE 107 mmol/L (97-110); CREATININE 0.94 mg/dl (0.61-1.24); Estimated GFR > 60 mL/min (>60); GLUCOSE 142 mg/dl (70-220); POTASSIUM 3.5 mmol/L (3.5-5.1); SODIUM 141 mmol/L (135-144); TOTAL PROTEIN 7.4 g/dl (6.1-8.1)
[2018-07-08] MEDS: ACCU-CHEK XX (21:52)
[2018-07-09 05:31] LABS: ADD MAN DIFF? NO
[2018-07-09 05:36] LABS: ABNORMAL IP MESSAGE 1; BASOPHIL # 0.1 10^3/ul (0.0-0.1); BASOPHILS % 0.8 % (0.0-2.0); EOSINOPHILS # 0.1 10^3/ul (0.0-0.5); HEMATOCRIT 32.6 % (42.0-52.0); HEMOGLOBIN 10.7 g/dl (14.0-18.0); LYMPHOCYTES # 1.2 10^3/ul (0.8-2.9); LYMPHOCYTES % 19.4 % (15.0-51.0); MEAN CORPUSCULAR HEMOGLOBIN 34.6 pg (29.0-33.0); MEAN CORPUSCULAR HGB CONC 32.8 g/dl (32.0-37.0); MEAN CORPUSCULAR VOLUME 105.5 fl (82.0-101.0); MEAN PLATELET VOLUME 12.4 fl (7.4-10.4); MONOCYTE # 0.8 10^3/ul (0.3-0.9); MONOCYTES % 13.1 % (0.0-11.0); NEUTROPHIL # 3.8 10^3/ul (1.6-7.5); NEUTROPHILS % 64.4 % (39.0-77.0); PLATELET COUNT 58 10^3/UL (140-415); POSITIVE DIFF @See below; RED BLOOD COUNT 3.09 10^6/ul (4.70-6.10); RED CELL DISTRIBUTION WIDTH 20.9 % (11.5-14.5)
[2018-07-09 05:55] LABS: ALANINE AMINOTRANSFERASE 81 IU/L (13-69); ALBUMIN 2.3 g/dl (3.3-4.9); ALBUMIN/GLOBULIN RATIO 0.46; ALKALINE PHOSPHATASE 106 IU/L (42-121); ANION GAP 1 (5-13); ASPARTATE AMINO TRANSFERASE 167 IU/L (15-46); BILIRUBIN,INDIRECT 3.3 mg/dl (0-1.1); BILIRUBIN,TOTAL 4.1 mg/dl (0.2-1.3); BLOOD UREA NITROGEN 21 mg/dl (7-20); CARBON DIOXIDE 30 mmol/L (21-31); CHLORIDE 112 mmol/L (97-110); CREATININE 0.92 mg/dl (0.61-1.24); Estimated GFR > 60 mL/min (>60); GLUCOSE 109 mg/dl (70-220); POTASSIUM 3.3 mmol/L (3.5-5.1); SODIUM 143 mmol/L (135-144); TOTAL PROTEIN 7.2 g/dl (6.1-8.1)
[2018-07-09 05:58] LABS: MAGNESIUM 1.5 mg/dl (1.7-2.5)
[2018-07-09 05:58] LABS: PHOSPHORUS 3.6 mg/dl (2.5-4.9)
[2018-07-09] MEDS: PANTOPRAZOLE 40 MG INJ IV ×2 (06:09→18:05)
[2018-07-09] MEDS: INSULIN ASPART [NOVOLOG] 3 ML PEN SC ×4 (08:00→20:51)
[2018-07-09] MEDS: CIPROFLOXACIN 400MG/D5W 200 ML IVPB ×2 (09:20→20:35)
[2018-07-09] MEDS: POTASSIUM CHLORIDE 20 MEQ POWDER FOR ORAL SOLN PO (09:30)
[2018-07-09] MEDS: MAGNESIUM SULFATE 2 GM/50 ML 50 ML IVPB (11:03)
[2018-07-10] MEDS: ACCU-CHEK XX (02:00)
[2018-07-10 05:21] LABS: ADD MAN DIFF? NO
[2018-07-10 05:28] LABS: WHITE BLOOD COUNT 12.4 10^3/ul (4.8-10.8)
[2018-07-10 05:28] LABS: ABNORMAL IP MESSAGE 1; BASOPHIL # 0.1 10^3/ul (0.0-0.1); BASOPHILS % 0.4 % (0.0-2.0); EOSINOPHILS # 0.2 10^3/ul (0.0-0.5); EOSINOPHILS % 1.9 % (0.0-7.0); HEMATOCRIT 13.8 % (42.0-52.0); LYMPHOCYTES # 2.5 10^3/ul (0.8-2.9); LYMPHOCYTES % 20.3 % (15.0-51.0); MEAN CORPUSCULAR HEMOGLOBIN 35.4 pg (29.0-33.0); MEAN CORPUSCULAR HGB CONC 32.6 g/dl (32.0-37.0); MEAN CORPUSCULAR VOLUME 108.7 fl (82.0-101.0); MEAN PLATELET VOLUME 11.5 fl (7.4-10.4); MONOCYTE # 1.6 10^3/ul (0.3-0.9); MONOCYTES % 12.6 % (0.0-11.0); NEUTROPHIL # 7.9 10^3/ul (1.6-7.5); NEUTROPHILS % 64.2 % (39.0-77.0); PLATELET COUNT 85 10^3/UL (140-415); POSITIVE DIFF @See below; RED BLOOD COUNT 1.27 10^6/ul (4.70-6.10); RED CELL DISTRIBUTION WIDTH 20.6 % (11.5-14.5)
[2018-07-10 05:35] LABS: HEMOGLOBIN 4.5 g/dl (14.0-18.0)
[2018-07-10 06:01] LABS: ALANINE AMINOTRANSFERASE 89 IU/L (13-69); ALBUMIN 2.4 g/dl (3.3-4.9); ALBUMIN/GLOBULIN RATIO 0.47; ALKALINE PHOSPHATASE 129 IU/L (42-121); ANION GAP 5 (5-13); ASPARTATE AMINO TRANSFERASE 204 IU/L (15-46); BILIRUBIN,INDIRECT 3.1 mg/dl (0-1.1); BILIRUBIN,TOTAL 3.9 mg/dl (0.2-1.3); BLOOD UREA NITROGEN 18 mg/dl (7-20); CARBON DIOXIDE 28 mmol/L (21-31); CHLORIDE 107 mmol/L (97-110); CREATININE 0.77 mg/dl (0.61-1.24); Estimated GFR > 60 mL/min (>60); GLUCOSE 121 mg/dl (70-220); POTASSIUM 3.4 mmol/L (3.5-5.1); SODIUM 140 mmol/L (135-144); TOTAL PROTEIN 7.5 g/dl (6.1-8.1)
[2018-07-10 06:35] LABS: ADD MAN DIFF? NO
[2018-07-10] MEDS: PANTOPRAZOLE 40 MG INJ IV ×2 (06:37→18:14)
[2018-07-10 06:39] LABS: WHITE BLOOD COUNT 8.3 10^3/ul (4.8-10.8)
[2018-07-10 06:39] LABS: ABNORMAL IP MESSAGE 1; BASOPHIL # 0.1 10^3/ul (0.0-0.1); BASOPHILS % 0.7 % (0.0-2.0); EOSINOPHILS # 0.2 10^3/ul (0.0-0.5); EOSINOPHILS % 1.8 % (0.0-7.0); HEMATOCRIT 25.7 % (42.0-52.0); HEMOGLOBIN 8.4 g/dl (14.0-18.0); LYMPHOCYTES # 1.6 10^3/ul (0.8-2.9); LYMPHOCYTES % 18.7 % (15.0-51.0); MEAN CORPUSCULAR HGB CONC 32.7 g/dl (32.0-37.0); MEAN CORPUSCULAR VOLUME 107.1 fl (82.0-101.0); MEAN PLATELET VOLUME 11.9 fl (7.4-10.4); MONOCYTES % 12.2 % (0.0-11.0); NEUTROPHIL # 5.5 10^3/ul (1.6-7.5); PLATELET COUNT 68 10^3/UL (140-415); POSITIVE DIFF @See below; RED CELL DISTRIBUTION WIDTH 20.7 % (11.5-14.5)
[2018-07-10 07:06] LABS: ALANINE AMINOTRANSFERASE 90 IU/L (13-69); ALBUMIN 2.4 g/dl (3.3-4.9); ALBUMIN/GLOBULIN RATIO 0.46; ALKALINE PHOSPHATASE 134 IU/L (42-121); ANION GAP 7 (5-13); ASPARTATE AMINO TRANSFERASE 207 IU/L (15-46); BILIRUBIN,INDIRECT 3.2 mg/dl (0-1.1); BILIRUBIN,TOTAL 4.1 mg/dl (0.2-1.3); BLOOD UREA NITROGEN 17 mg/dl (7-20); CALCIUM 8.2 mg/dl (8.4-10.2); CARBON DIOXIDE 27 mmol/L (21-31); CHLORIDE 107 mmol/L (97-110); CREATININE 0.79 mg/dl (0.61-1.24); Estimated GFR > 60 mL/min (>60); GLUCOSE 124 mg/dl (70-220); POTASSIUM 3.5 mmol/L (3.5-5.1); SODIUM 141 mmol/L (135-144); TOTAL PROTEIN 7.6 g/dl (6.1-8.1)
[2018-07-10] MEDS: INSULIN ASPART [NOVOLOG] 3 ML PEN SC ×4 (08:00→21:02)
[2018-07-10] MEDS: CIPROFLOXACIN 400MG/D5W 200 ML IVPB ×2 (08:57→20:48)
[2018-07-10 11:48] LABS: ADD MAN DIFF? NO
[2018-07-10 11:56] LABS: WHITE BLOOD COUNT 11.6 10^3/ul (4.8-10.8)
[2018-07-10 11:56] LABS: ABNORMAL IP MESSAGE 1; BASOPHIL # 0.1 10^3/ul (0.0-0.1); BASOPHILS % 0.7 % (0.0-2.0); EOSINOPHILS # 0.2 10^3/ul (0.0-0.5); EOSINOPHILS % 1.8 % (0.0-7.0); HEMATOCRIT 28.2 % (42.0-52.0); HEMOGLOBIN 8.9 g/dl (14.0-18.0); LYMPHOCYTES # 1.9 10^3/ul (0.8-2.9); MEAN CORPUSCULAR HEMOGLOBIN 34.4 pg (29.0-33.0); MEAN CORPUSCULAR HGB CONC 31.6 g/dl (32.0-37.0); MEAN CORPUSCULAR VOLUME 108.9 fl (82.0-101.0); MONOCYTE # 1.2 10^3/ul (0.3-0.9); MONOCYTES % 10.6 % (0.0-11.0); NEUTROPHIL # 8.1 10^3/ul (1.6-7.5); NEUTROPHILS % 70.1 % (39.0-77.0); PLATELET COUNT 82 10^3/UL (140-415); POSITIVE DIFF @See below; RED BLOOD COUNT 2.59 10^6/ul (4.70-6.10); RED CELL DISTRIBUTION WIDTH 20.9 % (11.5-14.5)
[2018-07-11] MEDS: ACCU-CHEK XX (01:38)
[2018-07-11 05:18] LABS: ADD MAN DIFF? NO
[2018-07-11 05:43] LABS: ABNORMAL IP MESSAGE 1; BASOPHIL # 0.1 10^3/ul (0.0-0.1); BASOPHILS % 0.7 % (0.0-2.0); EOSINOPHILS # 0.2 10^3/ul (0.0-0.5); EOSINOPHILS % 2.7 % (0.0-7.0); HEMATOCRIT 23.2 % (42.0-52.0); HEMOGLOBIN 7.6 g/dl (14.0-18.0); LYMPHOCYTES # 1.4 10^3/ul (0.8-2.9); LYMPHOCYTES % 18.7 % (15.0-51.0); MEAN CORPUSCULAR HEMOGLOBIN 35.2 pg (29.0-33.0); MEAN CORPUSCULAR HGB CONC 32.8 g/dl (32.0-37.0); MEAN CORPUSCULAR VOLUME 107.4 fl (82.0-101.0); MEAN PLATELET VOLUME 11.3 fl (7.4-10.4); MONOCYTES % 13.2 % (0.0-11.0); NEUTROPHIL # 4.8 10^3/ul (1.6-7.5); NEUTROPHILS % 64.3 % (39.0-77.0); PLATELET COUNT 68 10^3/UL (140-415); POSITIVE DIFF @See below; RED BLOOD COUNT 2.16 10^6/ul (4.70-6.10); RED CELL DISTRIBUTION WIDTH 20.4 % (11.5-14.5)
[2018-07-11 05:43] LABS: WHITE BLOOD COUNT 7.5 10^3/ul (4.8-10.8)
[2018-07-11 05:51] LABS: INR 2.54; PROTIME 27.4 Sec (11.9-14.9); PT RATIO 2.1
[2018-07-11 05:58] LABS: MAGNESIUM 1.7 mg/dl (1.7-2.5)
[2018-07-11 05:58] LABS: PHOSPHORUS 3.6 mg/dl (2.5-4.9)
[2018-07-11] MEDS: PANTOPRAZOLE 40 MG INJ IV ×2 (06:19→18:10)
[2018-07-11 06:20] LABS: ALANINE AMINOTRANSFERASE 85 IU/L (13-69); ALBUMIN 2.3 g/dl (3.3-4.9); ALBUMIN/GLOBULIN RATIO 0.45; ALKALINE PHOSPHATASE 117 IU/L (42-121); ANION GAP 0 (5-13); ASPARTATE AMINO TRANSFERASE 185 IU/L (15-46); BILIRUBIN,INDIRECT 2.9 mg/dl (0-1.1); BILIRUBIN,TOTAL 3.4 mg/dl (0.2-1.3); BLOOD UREA NITROGEN 14 mg/dl (7-20); CALCIUM 7.8 mg/dl (8.4-10.2); CARBON DIOXIDE 29 mmol/L (21-31); CHLORIDE 109 mmol/L (97-110); CREATININE 0.74 mg/dl (0.61-1.24); Estimated GFR > 60 mL/min (>60); GLUCOSE 112 mg/dl (70-220); POTASSIUM 3.6 mmol/L (3.5-5.1); SODIUM 138 mmol/L (135-144); TOTAL PROTEIN 7.4 g/dl (6.1-8.1)
[2018-07-11] MEDS: INSULIN ASPART [NOVOLOG] 3 ML PEN SC ×4 (08:00→20:31)
[2018-07-11 13:24] LABS: HEMATOCRIT 27.7 % (42.0-52.0); HEMOGLOBIN 9.4 g/dl (14.0-18.0)
[2018-07-11] MEDS ORDERED: METOCLOPRAMIDE 10 MG INJ IV ×2 (16:00)
[2018-07-11] MEDS ORDERED: HYDROmorphONE 1 MG/5 ML IV SYRINGE IV ×4 (16:00)
[2018-07-11] MEDS ORDERED: FENTAnyl 50 MCG/ML VIAL IV ×6 (16:00)
[2018-07-11] MEDS ORDERED: ONDANSETRON 4 MG INJ IV ×2 (16:00)
[2018-07-11] MEDS: PROPOFOL 40 ML (17:48)
[2018-07-12] MEDS: ACCU-CHEK XX (01:54)
[2018-07-12] MEDS: PANTOPRAZOLE 40 MG INJ IV (05:25)
[2018-07-12 07:56] LABS: ADD MAN DIFF? NO
[2018-07-12 08:00] LABS: WHITE BLOOD COUNT 6.4 10^3/ul (4.8-10.8)
[2018-07-12 08:00] LABS: ABNORMAL IP MESSAGE 1; BASOPHIL # 0.1 10^3/ul (0.0-0.1); BASOPHILS % 1.1 % (0.0-2.0); EOSINOPHILS # 0.2 10^3/ul (0.0-0.5); EOSINOPHILS % 2.5 % (0.0-7.0); HEMATOCRIT 28.3 % (42.0-52.0); HEMOGLOBIN 9.3 g/dl (14.0-18.0); LYMPHOCYTES # 1.4 10^3/ul (0.8-2.9); LYMPHOCYTES % 22.2 % (15.0-51.0); MEAN CORPUSCULAR HGB CONC 32.9 g/dl (32.0-37.0); MEAN CORPUSCULAR VOLUME 106.4 fl (82.0-101.0); MEAN PLATELET VOLUME 12.2 fl (7.4-10.4); MONOCYTE # 0.9 10^3/ul (0.3-0.9); MONOCYTES % 13.5 % (0.0-11.0); NEUTROPHIL # 3.9 10^3/ul (1.6-7.5); NEUTROPHILS % 60.4 % (39.0-77.0); PLATELET COUNT 64 10^3/UL (140-415); POSITIVE DIFF @See below; RED BLOOD COUNT 2.66 10^6/ul (4.70-6.10); RED CELL DISTRIBUTION WIDTH 20.9 % (11.5-14.5)
[2018-07-12] MEDS: INSULIN ASPART [NOVOLOG] 3 ML PEN SC ×4 (08:00→21:00)
[2018-07-12 08:54] LABS: ALANINE AMINOTRANSFERASE 84 IU/L (13-69); ALBUMIN 2.2 g/dl (3.3-4.9); ALBUMIN/GLOBULIN RATIO 0.43; ALKALINE PHOSPHATASE 109 IU/L (42-121); ANION GAP 2 (5-13); ASPARTATE AMINO TRANSFERASE 164 IU/L (15-46); BILIRUBIN,TOTAL 3.6 mg/dl (0.2-1.3); BLOOD UREA NITROGEN 13 mg/dl (7-20); CALCIUM 7.9 mg/dl (8.4-10.2); CARBON DIOXIDE 29 mmol/L (21-31); CHLORIDE 109 mmol/L (97-110); CREATININE 0.74 mg/dl (0.61-1.24); Estimated GFR > 60 mL/min (>60); GLUCOSE 111 mg/dl (70-220); POTASSIUM 3.7 mmol/L (3.5-5.1); SODIUM 140 mmol/L (135-144); TOTAL PROTEIN 7.3 g/dl (6.1-8.1)
[2018-07-12] MEDS ORDERED: PROPRANOLOL 10 MG TAB PO (14:30)
[2018-07-12] MEDS ORDERED: predniSONE 20 MG TAB PO (14:30)
[2018-07-12] MEDS: RANITIDINE 150 MG TAB PO ×2 (15:18→21:00)
[2018-07-12] MEDS: LIDOCAINE 1% (MPF) 5 ML VIAL (17:23)
[2018-07-12 18:05] LABS: FLD MN% 97.8 %; FLD PMN% 2.2 %; FLD RBC 1000 /uL; FLD WBC 183 /cmm
[2018-07-12 18:50] LABS: FLUID LD 239 U/L; FLUID TOTAL PROTEIN < 2.0 g/dl; FLUID TYPE PARACENTESIS FLUID
[2018-07-12 19:51] LABS: FLD CLARITY CLEAR; FLD COLOR YELLOW
[2018-07-12 19:51] LABS: FLD TYPE PARACENTHESIS
[2018-07-12] MEDS: PROPRANOLOL 10 MG TAB PO (21:11)
[2018-07-13] MEDS: ACCU-CHEK XX (01:32)
[2018-07-13 05:56] LABS: ADD MAN DIFF? NO
[2018-07-13 06:04] LABS: ABNORMAL IP MESSAGE 1; BASOPHIL # 0.1 10^3/ul (0.0-0.1); BASOPHILS % 0.8 % (0.0-2.0); EOSINOPHILS # 0.2 10^3/ul (0.0-0.5); EOSINOPHILS % 2.5 % (0.0-7.0); HEMATOCRIT 23.8 % (42.0-52.0); HEMOGLOBIN 7.7 g/dl (14.0-18.0); LYMPHOCYTES # 1.8 10^3/ul (0.8-2.9); LYMPHOCYTES % 25.3 % (15.0-51.0); MEAN CORPUSCULAR HGB CONC 32.4 g/dl (32.0-37.0); MEAN CORPUSCULAR VOLUME 108.2 fl (82.0-101.0); MEAN PLATELET VOLUME 11.8 fl (7.4-10.4); NEUTROPHIL # 4.2 10^3/ul (1.6-7.5); PLATELET COUNT 72 10^3/UL (140-415); POSITIVE DIFF @See below; RED CELL DISTRIBUTION WIDTH 20.7 % (11.5-14.5)
[2018-07-13 06:04] LABS: WHITE BLOOD COUNT 7.3 10^3/ul (4.8-10.8)
[2018-07-13 06:57] LABS: MAGNESIUM 1.5 mg/dl (1.7-2.5)
[2018-07-13 06:57] LABS: PHOSPHORUS 3.2 mg/dl (2.5-4.9)
[2018-07-13 07:11] LABS: ALANINE AMINOTRANSFERASE 80 IU/L (13-69); ALBUMIN 2.2 g/dl (3.3-4.9); ALBUMIN/GLOBULIN RATIO 0.47; ALKALINE PHOSPHATASE 117 IU/L (42-121); ANION GAP 5 (5-13); ASPARTATE AMINO TRANSFERASE 169 IU/L (15-46); BILIRUBIN,INDIRECT 2.6 mg/dl (0-1.1); BILIRUBIN,TOTAL 2.6 mg/dl (0.2-1.3); BLOOD UREA NITROGEN 13 mg/dl (7-20); CALCIUM 7.7 mg/dl (8.4-10.2); CARBON DIOXIDE 27 mmol/L (21-31); CHLORIDE 105 mmol/L (97-110); CREATININE 0.78 mg/dl (0.61-1.24); Estimated GFR > 60 mL/min (>60); GLUCOSE 98 mg/dl (70-220); POTASSIUM 3.9 mmol/L (3.5-5.1); SODIUM 137 mmol/L (135-144); TOTAL PROTEIN 6.8 g/dl (6.1-8.1)
[2018-07-13 07:58] LABS: FOLATE 8.2 ng/ml (2.8-20.0)
[2018-07-13] MEDS: INSULIN ASPART [NOVOLOG] 3 ML PEN SC ×2 (08:00→12:45)
[2018-07-13] MEDS: RANITIDINE 150 MG TAB PO (08:14)
[2018-07-13] MEDS: predniSONE 20 MG TAB PO (08:15)
[2018-07-13] MEDS: PROPRANOLOL 10 MG TAB PO (08:15)
[2018-07-13] MEDS: MAGNESIUM SULFATE 2 GM/50 ML 50 ML IVPB (09:36)
[2018-07-13 09:39] LABS: HEMATOCRIT 27.3 % (42.0-52.0); HEMOGLOBIN 8.8 g/dl (14.0-18.0)
== END 2018-07-13 13:50 | disposition home or self-care (01) | DRG 870 ==
LOC: ICU 22:50 → 2NE 07-06 18:05 → E/R 20:43
PROC: 02HV33Z Insertion of Infusion Device into Superior Vena Cava, Percutaneous Approach (ICD-10-PCS; principal; 2018-07-11 15:20)
PROC: 5A1955Z Respiratory Ventilation, Greater than 96 Consecutive Hours (ICD-10-PCS; 2018-07-11 15:20)
PROC: 0W9G3ZX Drainage of Peritoneal Cavity, Percutaneous Approach, Diagnostic (ICD-10-PCS; 2018-07-11 15:20)
PROC: 0BH18EZ Insertion of Endotracheal Airway into Trachea, Via Natural or Artificial Opening Endoscopic (ICD-10-PCS; 2018-07-11 15:20)
PROC: 0CJS8ZZ Inspection of Larynx, Via Natural or Artificial Opening Endoscopic (ICD-10-PCS; 2018-07-11 15:20)
DX: A41.9 Sepsis, unspecified organism (principal); D65 Disseminated intravascular coagulation [defibrination syndrome]; J96.00 Acute respiratory failure, unspecified whether with hypoxia or hypercapnia; G93.41 Metabolic encephalopathy; J18.9 Pneumonia, unspecified organism; K72.00 Acute and subacute hepatic failure without coma; N39.0 Urinary tract infection, site not specified; N17.9 Acute kidney failure, unspecified; I85.00 Esophageal varices without bleeding; M62.82 Rhabdomyolysis; I42.1 Obstructive hypertrophic cardiomyopathy; D61.818 Other pancytopenia; I85.10 Secondary esophageal varices without bleeding; K76.6 Portal hypertension; R18.8 Other ascites; K74.60 Unspecified cirrhosis of liver; R13.10 Dysphagia, unspecified; I48.0 Paroxysmal atrial fibrillation; K31.89 Other diseases of stomach and duodenum; J38.3 Other diseases of vocal cords
CPT/HCPCS: 31500; 36415; 36430; 36569; 36600; 70450; 71045; 74181; 76700; 76705; 76937; 80048; 80053; 80076; 80202; 80307; 81001; 82042; 82140; 82270; 82550; 82553; 82607; 82728; 82746; 82803; 82962; 83036; 83540; 83605; 83615; 83735; 84100; 84157; 84484; 85014; 85018; 85025; 85049; 85362; 85378; 85384; 85610; 85670; 85730; 86038; 86255; 86704; 86706; 86709; 86803; 86850; 86900; 86901; 87040; 87070; 87081; 87086; 87102; 87116; 87340; 87400; 88104; 88305; 89051; 92526; 92610; 93005; 93306; 94002; 94003; 94770; 95819; 97110; 97116; 97163; 97167; 97530; 97535; 99291-25